=== PATIENT | male | born 1945 | race Caucasian/White ===

== ENCOUNTER → 2016-09-24 | Outpatient (CLI) | payer MEDICARE ==
[~2016-09-24] VITALS: Ht 172.7 cm; Wt 65.8 kg
[~2016-09-24] MED LIST: ASPI32ECTA PO; ISOS30TA4 PO; LIDOCAINE 2% INJ 100 MG/5 ML SDV (FOR ANES.) As Ordered ONE; LISI-542 PO; PLAV75TA38 PO; POTA10CA PO; PROPOFOL 200 MG/20 ML VIAL As Ordered ONE; SIMV40TA2 PO; SOTA80TA PO; ZETI10TA2 PO
--- NOTE | 2016-09-24 14:13 | ROOR ---
Patient Name: Ramesh Moyer Procedure Date: 09/24/2016 1:46 PM Date of : 1945 Age: 71 Room: [facility] Gender: Male Note Status: Finalized Procedure: Colonoscopy Indications: Rectal bleeding Providers: Dave Fernández Jr, MD Referring MD: Justus Sauceda MD Requesting Provider: Medicines: Propofol per Anesthesia Complications: No immediate complications. Procedure: Pre-Anesthesia Assessment: - Prior to the procedure, a History and Physical was performed, and patient medications and allergies were reviewed. The patient is competent. The risks and benefits of the procedure and the sedation options and risks were discussed with the patient. All questions were answered and informed consent was obtained. Patient identification and proposed procedure were verified by the physician and the nurse in the pre-procedure area and in the procedure room. Mental Status Examination: alert and oriented. Airway Examination: normal oropharyngeal airway and neck mobility. Respiratory Examination: clear to auscultation. CV Examination: normal. ASA Grade Assessment: II - A patient with mild systemic disease. After reviewing the risks and benefits, the patient was deemed in satisfactory condition to undergo the procedure. The anesthesia plan was to use moderate sedation / analgesia (conscious sedation). Immediately prior to administration of medications, the patient was re-assessed for adequacy to receive sedatives. The heart rate, respiratory rate, oxygen saturations, blood pressure, adequacy of pulmonary ventilation, and response to care were monitored throughout the procedure. The physical status of the patient was re-assessed after the procedure. The Colonoscope was introduced through the anus and advanced to the cecum, identified by appendiceal orifice and ileocecal valve. The colonoscopy was performed without difficulty. The patient tolerated the procedure well. The quality of the bowel preparation was adequate and good. Findings: The perianal exam findings include non-thrombosed internal hemorrhoids, internal hemorrhoids that prolapse with straining, but spontaneously regress to the resting position (Grade II) and internal hemorrhoids that prolapse with straining, but require manual replacement into the anal canal (Grade III). Two polyps were found in the transverse colon. The polyps were diminutive in size. These polyps were removed with a jumbo cold forceps. Resection and retrieval were complete. The rectum, recto-sigmoid colon, descending colon, ascending colon, cecum, appendiceal orifice and ileocecal valve appeared normal. Multiple small and large-mouthed diverticula were found in the sigmoid colon. Impression: - Non-thrombosed internal hemorrhoids, internal hemorrhoids that prolapse with straining, but spontaneously regress to the resting position (Grade II) and internal hemorrhoids that prolapse with straining, but require manual replacement into the anal canal (Grade III) found on perianal exam. - Two diminutive polyps in the transverse colon, removed with a jumbo cold forceps. Resected and retrieved. - The rectum, recto-sigmoid colon, descending colon, ascending colon, cecum, appendiceal orifice and ileocecal valve are normal. - Diverticulosis in the sigmoid colon. Recommendation: - Discharge patient to home (ambulatory). - Repeat colonoscopy in 5-10 years for surveillance based on pathology results. Dave Fernández MD Dave Fernández Jr, MD 09/24/2016 2:13:08 PM This report has been signed electronically. Number of Addenda: 0 Note Initiated On: 09/24/2016 1:46 PM Estimated Blood Loss: Estimated blood loss: none.
[2016-09-24 14:30] VITALS: BP 118/76
== END | disposition home or self-care (01) ==
LOC: M OPP 12:58
PROVIDERS: ATTEND Surgery
DX: K64.1 Second degree hemorrhoids (principal); K64.2 Third degree hemorrhoids; D12.3 Benign neoplasm of transverse colon; K57.30 Diverticulosis of large intestine without perforation or abscess without bleeding; I10 Essential (primary) hypertension; E78.00 Pure hypercholesterolemia, unspecified; Z95.5 Presence of coronary angioplasty implant and graft; Z97.2 Presence of dental prosthetic device (complete) (partial); Z79.82 Long term (current) use of aspirin; Z79.899 Other long term (current) drug therapy; I25.2 Old myocardial infarction

== ENCOUNTER → 2017-03-19 | Outpatient (CLI) | payer MEDICARE ==
[~2017-03-19] MED LIST changes: +ASPI325T24 PO; -ASPI32ECTA PO; -LIDOCAINE 2% INJ 100 MG/5 ML SDV (FOR ANES.) As Ordered ONE; +PLAV1TAB2 PO; -PLAV75TA38 PO; -PROPOFOL 200 MG/20 ML VIAL As Ordered ONE; -ZETI10TA2 PO; +ZETI10TA30 PO
[2017-03-19 14:17] LABS: CALCIUM LEVEL 8.9 MG/DL (8.8-10.2); CREATININE FOR GFR 1.29 MG/DL (0.70-1.30); GLOMERULAR FILTRATION RATE 58.1 (>42)
[2017-03-19 14:26] LABS: POTASSIUM SERUM 5.2 MEQ/L (3.5-5.1)
== END ==
LOC: M SMT 11:23
PROVIDERS: ATTEND Urology
DX: R97.20 Elevated prostate specific antigen [PSA] (principal)
CPT/HCPCS: 36415; 80048; 84153; G0463

== ENCOUNTER → 2017-04-02 | Outpatient (CLI) | payer MEDICARE ==
--- NOTE | 2017-04-02 13:28 | REP ---
MULTIPARAMETRIC PROSTATE MRI STUDY WITH PRE- AND POST GADOLINIUM ENHANCED IMAGING: TECHNIQUE: Using a phased array surface coil, small field of view imaging was acquired using T2-weighted scans in the axial, coronal, and sagittal imaging planes. Small field of view diffusion-weighted sequences are acquired. Small field of view axial T1-weighted scans are acquired dynamically after the intravenous administration of 7 mL of Gadolinium. Using a large field of view, the entire pelvis to the level of the aortic bifurcation was imaged using pre-contrast axial T1 and post-contrast axial T1 fat-saturation images. HISTORY: Elevated prostate specific antigen. FINDINGS: Image quality is satisfactory except for some degradation of the diffusion weighted sequences. There is no evidence of pelvic or inguinal adenopathy. No bone lesion is seen. Seminal vesicles appear symmetrical. Prostate gland measures 5.7 x 4.4 x 4.4 cm for a total volume of 55.86 mL. There are nodular areas of T2 mixed signal in the central gland and transitional zone consistent with benign prostatic hypertrophy. There are four abnormal areas of signal intensity and contrast enhancement identified as regions of interest in the prostate gland. First in the left basilar posterior transitional zone, there is a focal oval hypointense area on T2-weighted images which demonstrates type III enhancement characteristics. The area measures 3.0 x 0.8 x 1.0 cm for a total volume of 1.23 mL. Overall level of suspicion is 4 out of 5 with clinically significant cancer like to be present. Secondary in the left mid and basilar and apical transitional zone, there is an area of mixed low signal on T2-weighted images without well defined borders. This area demonstrates predominately type III enhancement characteristics. The area measures 2.9 x 1.1 x 2.9 cm for a total volume of 6.11 mL. Overall level of suspicious of 3 out of 5 with clinically significant cancer equivocal. Third in the right transitional zone extending from the base to the apex is a geographic area mixed low signal on T2 with ill-defined borders. This area demonstrates predominately type III enhancement characteristics. The area measures 2.6 x 1.2 x 2.3 cm for a total volume of 4.52 mL. Overall level of suspicion is 3 out of 5 with clinically significant cancer equivocal. Finally in the medial mid peripheral zone bilaterally, there is a geographic area of low signal on T2, likely representing an area of prostatitis. The area demonstrates predominately type II enhancement characteristics. The area measures 3.9 x 0.8 x 1.3 cm for a total volume of 3.02 mL. Overall level of suspicion is 2 out of 5 with clinically significant cancer unlikely to be present. IMPRESSION: Four focal abnormalities seen in the prostate gland identified as regions of interest on the [employer] software to be transmitted for MR ultrasound fusion utilization. Signed by Xavier Cheema MD 04/02/2017 04:45 P
== END ==
LOC: M RAD 09:18
PROVIDERS: ATTEND Urology
DX: R93.8 Abnormal findings on diagnostic imaging of other specified body structures (principal)
CPT/HCPCS: 72197; A9576

== ENCOUNTER → 2018-03-02 | Outpatient (REF) | payer MEDICARE ==
[2018-03-02 13:49] LABS: APPEARANCE, URINE CLEAR (CLEAR); BACTERIA, URINE AUTO NEGATIVE (NEGATIVE); BILIRUBIN, URINE AUTO NEGATIVE (NEGATIVE); BLOOD, URINE BLOOD 2+ (NEGATIVE); COLOR, URINE YELLOW (YELLOW); GLUCOSE, URINE (UA) AUTO NEGATIVE (NEGATIVE); KETONE, URINE AUTO NEGATIVE (NEGATIVE); LEUKOCYTE ESTERASE, URINE AUTO NEGATIVE (NEGATIVE); MUCUS, URINE SMALL (NEGATIVE); NITRITE, URINE AUTO NEGATIVE (NEGATIVE); PROTEIN, URINE AUTO NEGATIVE (NEGATIVE); RBC, URINE AUTO 3 /HPF (0-3); SPECIFIC GRAVITY URINE AUTO 1.016 (1.002-1.035); SQUAMOUS EPITHELIAL CELL UR AU 0 /HPF (0-6); UROBILINOGEN, URINE AUTO 0.2 mg/dL (0.0-2.0); WBC, URINE AUTO 0 /HPF (0-3)
== END ==
LOC: M SMT 13:15
DX: C61 Malignant neoplasm of prostate (principal); R35.0 Frequency of micturition
CPT/HCPCS: 81001

== ENCOUNTER → 2018-11-14 | Outpatient (REF) | payer MEDICARE ==
[~2018-11-14] MED LIST changes: +ASPI-255 PO; -ASPI325T24 PO; +KLOR10TA76 PO; -POTA10CA PO; -SOTA80TA PO; +SOTA80TA32 PO
[2018-11-14 13:31] LABS: APPEARANCE, URINE CLEAR (CLEAR); BACTERIA, URINE AUTO NEGATIVE (NEGATIVE); BILIRUBIN, URINE AUTO NEGATIVE (NEGATIVE); BLOOD, URINE BLOOD 2+ (NEGATIVE); COLOR, URINE YELLOW (YELLOW); GLUCOSE, URINE (UA) AUTO NEGATIVE (NEGATIVE); KETONE, URINE AUTO NEGATIVE (NEGATIVE); LEUKOCYTE ESTERASE, URINE AUTO NEGATIVE (NEGATIVE); MUCUS, URINE SMALL (NEGATIVE); NITRITE, URINE AUTO NEGATIVE (NEGATIVE); PROTEIN, URINE AUTO NEGATIVE (NEGATIVE); RBC, URINE AUTO 3 /HPF (0-3); SPECIFIC GRAVITY URINE AUTO 1.017 (1.002-1.035); SQUAMOUS EPITHELIAL CELL UR AU 0 /HPF (0-6); UROBILINOGEN, URINE AUTO 0.2 mg/dL (0.0-2.0); WBC, URINE AUTO 2 /HPF (0-3)
== END ==
LOC: M SMT 12:42
PROVIDERS: ATTEND Nurse Practitioner Women's Health
DX: R31.29 Other microscopic hematuria (principal)
CPT/HCPCS: 81001; 87086; 88108; G0463

== ENCOUNTER → 2018-11-18 | Outpatient (CLI) | payer MEDICARE ==
[~2018-11-18] MED LIST changes: +ISOVUE-370 76% 100ML VIAL (Q9967) As Ordered ONE
--- NOTE | 2018-11-18 11:23 | REP ---
CT UROGRAPHY: CT ABDOMEN AND PELVIS WITHOUT AND WITH IV CONTRAST. HISTORY: Microscopic hematuria. History of prostate carcinoma. History of renal stones. Comparison CT study August 03, 2006. CT CONTRAST DOSE: 100 mL of intravenous Isovue 370. CT FINDINGS: Preliminary digital crochet beader radiograph demonstrates a normal bowel gas pattern. The lung bases are clear on axial CT images. The liver and the spleen are normal in size and homogeneous in texture. No focal liver lesion is seen. Pancreas is unremarkable. No adrenal lesion is seen on either side. There is an infrarenal abdominal aortic aneurysm which measures 3.6 cm in greatest anteroposterior dimension. This segment of the aorta has enlarged since the 2005 study. Small and large intestinal bowel loops are unremarkable. A normal appendix is seen. Prostate is enlarged and contains one or two calcifications. No bladder abnormality is seen. There are multiple bilateral renal cysts. These are more numerous and larger than they were in July 2006. The largest cyst amongst these is in the right mid kidney measuring 8.2 cm in diameter. In the lower pole on the right kidney, there is a cyst measuring 6.6 cm and at the upper pole there is a cyst measuring 7.5 cm. There are several small cortical and parapelvic cysts right kidney. The largest cyst in the left kidney is in its lower pole measuring 6.9 cm in greatest diameter. There are multiple smaller cysts including parapelvic cysts affecting the left kidney as well. These are fairly numerous. No hydronephrosis is noted. There are however two intrarenal calculi at the lower pole of the left kidney. The largest of these measures 9 mm. The other calculus measures 5 mm. No ureteral stone is seen. The kidneys enhance symmetrically. There is an accessory lower pole renal artery on the left. Delayed scanning shows no evidence of a filling defect in the collecting system or ureters. No bladder masses seen on pre or postcontrast imaging. There is a bone island again noted in the right iliac bone unchanged. No suspicious skeletal lesion is seen. There is no evidence of adenopathy. IMPRESSION: Bilateral multicystic kidneys. No hydronephrosis. Intrarenal nephrolithiasis on the left without hydronephrosis. Prostate enlargement. There is a 3.6 cm abdominal aortic aneurysm. Duplication of the left renal artery. Electronically Signed by Minor Bey MD 11/18/2018 01:35 P
== END ==
LOC: M RAD 08:21
PROVIDERS: ATTEND Nurse Practitioner Women's Health
DX: Q61.2 Polycystic kidney, adult type (principal); N20.0 Calculus of kidney; N40.1 Benign prostatic hyperplasia with lower urinary tract symptoms; I71.4 Abdominal aortic aneurysm, without rupture
CPT/HCPCS: 74178; Q9967

== ENCOUNTER 2019-10-16 09:34 | Day surgery (SDC) | payer MEDICARE ==
[~2019-10-16] VITALS: Ht 172.7 cm; Wt 72.5 kg
[~2019-10-16 09:34] MED LIST changes: +ASPI81TA85 PO; -ISOVUE-370 76% 100ML VIAL (Q9967) As Ordered ONE; -SIMV40TA2 PO; +SIMV40TA20 PO; +ZETI10TA16 PO; -ZETI10TA30 PO
[2019-10-16] MEDS ORDERED: ANTIBIOTIC PO (10:11)
[2019-10-16 10:12] LABS: HEMATOCRIT 52.1 % (42.0-52.0); HEMOGLOBIN 17.1 g/dl (13.5-17.5); MEAN CORPUSCULAR HEMOGLOBIN 31.7 pg (27.0-33.0); MEAN CORPUSCULAR HGB CONC 32.8 g/dl (32.0-36.5); MEAN CORPUSCULAR VOLUME 96.5 fl (80.0-96.0); PLATELET COUNT, AUTOMATED 233 10^3/uL (150-450)
[2019-10-16 10:37] LABS: CALCIUM LEVEL 8.8 MG/DL (8.8-10.2); CREATININE FOR GFR 1.4 MG/DL (0.70-1.30); GLOMERULAR FILTRATION RATE 52.6 (>42); POTASSIUM SERUM 4.8 MEQ/L (3.5-5.1)
[2019-10-16] MEDS ORDERED: fentaNYL 100 MCG/2 ML INJECTION (J3010) As Ordered ONE (10:53)
[2019-10-16] MEDS ORDERED: propofoL 200 MG/20 ML VIAL As Ordered ONE (10:56)
[2019-10-16] MEDS ORDERED: LIDOCAINE 2% INJ 100 MG/5 ML SDV (FOR ANES.) As Ordered ONE (10:56)
[2019-10-16] MEDS ORDERED: LR 1,000 ML IV ONE (11:00)
[2019-10-16] MEDS ORDERED: LIDOCAINE 1% SDV INJ 30 ML VIAL As Ordered ONE (11:19)
[2019-10-16] MEDS ORDERED: BUPIVACAINE HCL 0.25% 30 ML VIAL As Ordered ONE (11:19)
[2019-10-16] MEDS: LIDOCAINE 2% 5ML JELLY UROJET As Ordered ONE ×2 (11:44→11:45)
[2019-10-16 12:02] VITALS: BP 105/59
--- NOTE | 2019-10-16 12:41 | ROOPDOC ---
[facility] Report Of Operation Report of Operation DATE OF PROCEDURE: 10/16/19 PREPROCEDURE DIAGNOSES: Prostate Cancer. POSTPROCEDURE DIAGNOSES: Prostate Cancer. PROCEDURE: Transrectal Ultrasound-guided Prostate Biopsy. SURGEON: Yany Hicks MD TRANSPORTATION BROKER: None ANESTHESIA: Monitored Anesthesia Care (MAC). OPERATIVE INDICATIONS: This is a 74 year old male with clinical T1c Mary 3+3 prostate cancer managed with active surveillance, here for a prostate biopsy. DESCRIPTION OF PROCEDURE: The patient was brought to the operating room and MAC anesthesia was administered. He was placed in the left lateral position. A transrectal ultrasound probe was placed into the rectum. A prostatic block was created with injection of 50% mixture of 1/4% Marcaine and 1% lidocaine below the left and right seminal vesicle each of the 5 mL. Subsequently the ultrasonologist measured the dimensions of the prostate and the volume was 59mL. Then 12 core biopsies of the prostate were obtained using a disposable biopsy gun, 6 each from the right and 6 from the left, 2 from the base, 2 from the mid zone and 2 from the apex. There were no complications and the patient tolerated the procedure well. He was awakened from anesthesia and transported to the ecovery room in stable condition. ESTIMATED BLOOD LOSS: Approximately 5 mL. COMPLICATIONS: None. SPECIMENS: Prostate biopsies. PLAN: The patient will follow up in the urology office next week to discuss his pathology results. YANY HICKS MD Oct 16, 2019 12:41
--- NOTE | 2019-10-16 12:46 | REP ---
TRANSRECTAL PROSTATE ULTRASOUND WITH ULTRASOUND GUIDANCE FOR PROSTATE BIOPSY: Transrectal prostate ultrasound performed. Prostate measures 5.3 x 3.7 x 5.7 cm for a total volume of 58.5 mL. Central nodularity is noted with echogenic calcifications. No definite peripheral zone lesion is seen. Ultrasound guidance is provided for Dr. Singh who performed ultrasound guided biopsy of the prostate. Electronically Signed by Xavier Cheema MD 10/16/2019 01:37 P
--- NOTE | 2019-10-16 21:35 | ECGEPIP ---
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
== END 2019-10-16 12:50 | disposition home or self-care (01) ==
LOC: M SDC 09:34
PROVIDERS: ATTEND Urology
DX: R97.20 Elevated prostate specific antigen [PSA] (principal); C61 Malignant neoplasm of prostate; I10 Essential (primary) hypertension; E78.49 Other hyperlipidemia; M10.9 Gout, unspecified; I25.2 Old myocardial infarction; Z87.891 Personal history of nicotine dependence; Z79.82 Long term (current) use of aspirin; Z79.899 Other long term (current) drug therapy
CPT/HCPCS: 36415; 55700; 76872; 76998; 80048; 85027; 93005; G0416; J3010

== ENCOUNTER 2024-05-03 10:48 | Day surgery (SDC) | payer MEDICARE ==
[~2024-05-03] VITALS: Ht 172.7 cm; Wt 78.5 kg
[~2024-05-03 10:48] MED LIST changes: +ALLO100T PO; +ANTIBIOTIC PO; +ASPI81TA26 PO; -ASPI81TA85 PO; +ASPI81TA86 PO; +CLOP75TA99 PO; +EZET10TA58 PO; +ISOS1TAB35 PO; -ISOS30TA4 PO; -KLOR10TA76 PO; -LISI-542 PO; +LISI5TAB11 PO; +PANT40TA29 PO; +PHENYLEPHRINE 10% OPHTH SOL 5ML OD PRN; -PLAV1TAB2 PO; +POTA-136 PO; -ZETI10TA16 PO
[2024-05-03] MEDS ORDERED: fentaNYL 100 MCG/2 ML INJECTION As Ordered ONE (11:18)
[2024-05-03] MEDS: OFLOXACIN 0.3 % (OCUFLOX) OPTH SOL 5ML OD ONE (11:46)
[2024-05-03] MEDS: TROPICAMIDE 1% OPHTH SOLN 15ML OD SCH (11:47)
[2024-05-03] MEDS: LIDOCAINE 3.5 % 1ML OPHTH TOPICAL GEL OU ONE (11:47)
[2024-05-03] MEDS: ATROPINE SULFATE 1% OPHTH SOLN 2ML BTL OD SCH (11:47)
[2024-05-03] MEDS: PHENYLEPHRINE 2.5% OPHTH SOL 2ML OD SCH (11:47)
[2024-05-03] MEDS: BSS IRRIG/VANCO(10MG)/TOBRA(5MG)/EPINEPH(1:1000-0.5CC)500ML BAG-ORONLY As Ordered ONE (12:27)
[2024-05-03] MEDS: CEFUROXIME 1MG/0.1ML INTRACAMERAL INJ As Ordered ONE (12:27)
[2024-05-03] MEDS: LIDOCAINE 1% SDV 5ML VIAL As Ordered ONE (12:27)
[2024-05-03] MEDS: PROVISC 10 MG/ML 0.85ML SYRINGE As Ordered ONE (12:27)
[2024-05-03 12:34] VITALS: BP 157/71; TEMP 96.4; O2SAT 96
== END 2024-05-03 12:50 | disposition home or self-care (01) ==
LOC: M SDC 10:48
PROVIDERS: ATTEND Ophthalmology
DX: H25.11 Age-related nuclear cataract, right eye (principal); H40.1110 Primary open-angle glaucoma, right eye, stage unspecified; I25.10 Atherosclerotic heart disease of native coronary artery without angina pectoris; I25.2 Old myocardial infarction; I10 Essential (primary) hypertension; E78.5 Hyperlipidemia, unspecified; M10.9 Gout, unspecified; Z87.891 Personal history of nicotine dependence; Z98.61 Coronary angioplasty status; Z85.46 Personal history of malignant neoplasm of prostate; Z79.82 Long term (current) use of aspirin; Z79.899 Other long term (current) drug therapy
CPT/HCPCS: 66183; 66987; A4649; C1783; J0697; J3010; V2632

== ENCOUNTER 2024-05-17 10:26 | Day surgery (SDC) | payer MEDICARE ==
[~2024-05-17] VITALS: Ht 172.7 cm; Wt 77.8 kg
[~2024-05-17 10:26] MED LIST changes: +ATROPINE SULFATE 1% OPHTH SOLN 2ML BTL OS SCH; +BSS IRRIG/VANCO(10MG)/TOBRA(5MG)/EPINEPH(1:1000-0.5CC)500ML BAG-ORONLY As Ordered ONE; +CEFUROXIME 1MG/0.1ML INTRACAMERAL INJ As Ordered ONE; +LIDOCAINE 1% SDV 5ML VIAL As Ordered ONE; +LIDOCAINE 3.5 % 1ML OPHTH TOPICAL GEL OU ONE; +OFLOXACIN 0.3 % (OCUFLOX) OPTH SOL 5ML OS ONE; -PHENYLEPHRINE 10% OPHTH SOL 5ML OD PRN; +PHENYLEPHRINE 10% OPHTH SOL 5ML OS PRN; +PHENYLEPHRINE 2.5% OPHTH SOL 2ML OS SCH; +TROPICAMIDE 1% OPHTH SOLN 15ML OS SCH
[2024-05-17] MEDS ORDERED: fentaNYL 100 MCG/2 ML INJECTION As Ordered ONE (11:44)
[2024-05-17 12:06] VITALS: BP 104/51; TEMP 97.4; O2SAT 97
== END 2024-05-17 12:50 | disposition home or self-care (01) ==
LOC: M SDC 10:26
PROVIDERS: ATTEND Ophthalmology
DX: H25.12 Age-related nuclear cataract, left eye (principal); H40.812 Glaucoma with increased episcleral venous pressure, left eye; I25.10 Atherosclerotic heart disease of native coronary artery without angina pectoris; I25.2 Old myocardial infarction; I10 Essential (primary) hypertension; E78.5 Hyperlipidemia, unspecified; M10.9 Gout, unspecified; Z85.46 Personal history of malignant neoplasm of prostate; Z87.891 Personal history of nicotine dependence; Z98.61 Coronary angioplasty status; Z79.82 Long term (current) use of aspirin; Z79.899 Other long term (current) drug therapy
CPT/HCPCS: 66183; 66987; C1783; J0697; J3010; V2632